=== PATIENT | male | born 2000 | race Caucasian/White ===

== ENCOUNTER 2021-05-26 04:14 | Emergency (ER) | payer MEDICAID, SELFPAY ==
[2021-05-26 04:21] VITALS: BP 126/90; BP 127/85; PULSE 63; PULSE 95; RESP 18; TEMP 36.1; O2SAT 95; O2SAT 97; BMI 21.1
--- NOTE | 2021-05-26 04:56 | ED_ITS ---
HPI - Headache General Chief Complaint: Headache Stated Complaint: migraine Time Seen by Provider: 05/26/21 04:29 Source: patient Mode of arrival: EMS History of Present Illness HPI Narrative: 21-year-old male with history of migraines reports that he has had onset and progression of his normal pattern of migraines without associated fever, chills, neck stiffness, sore throat, or cough. Patient denies any COVID- 19 vaccinations and denies any nausea, but states he has photosensitivity without sensitivity to audio. Related Data Previous Rx's Medication Instructions Recorded ketorolac 10 mg tablet 10 mg PO Q6H PRN 5 Days #20 tab 05/26/21 Allergies Allergy/AdvReac Type Severity Reaction Status Date / Time No Known Allergies Allergy Unverified 05/26/21 04:52 Review of Systems Review of Systems: Pertinent positives and negatives as stated in HPI 10 point review of systems is otherwise negative. PMFSH Past Medical History Source: nursing notes reviewed Social History Social History Advance Directives: No Advance Directives Information Provided: No Physical Exam Vital Signs: Vital Signs: Last Vital Signs Temp 98.6 F 05/26/21 05:35 Pulse 70 05/26/21 05:35 Resp 16 05/26/21 05:35 BP 118/70 05/26/21 05:35 Pulse Ox 99 05/26/21 05:35 Body Mass Index 21.1 VITAL SIGNS: Reviewed. GENERAL: Well developed, well nourished, in no acute distress. HEAD: Normocephalic/atraumatic EYES: PERRLA, EOMI EARS: Ext canals without abnormality, TMs non-bulging and non-erythematous NOSE: Nares patent bilateral OROPHARYNX: no oral lesions noted, posterior pharynx clear and non-erythematous without noted tonsillar enlargement/erythema/exudates NECK: Supple, no adenopathy LUNGS: Normal breath sounds. No adventitious sounds or accessory muscle use. SpO2<95> CARDIOVASCULAR: Regular rate and rhythm without noted murmurs ABDOMEN: Soft, non-tender, non-distended with bowel sounds. NEUROLOGIC: Alert and oriented x 4. Strength and sensation to light touch were grossly intact x 4. Course Course Course Narrative: 21-year-old male with history and clinical presentation consistent with acute on chronic migraine exacerbation and will receive IV fluids in combination migraine cocktail with the exception Tylenol as he states he is allergic to acetaminophen. On re-evaluation patient is feeling much better and will be discharged home in stable condition. In addition, he will be provided with a neurology consult regarding his migraines. Discharge Plan Discharge Clinical Impression: Migraine Patient Disposition: Home, Self-Care Instructions: Migraine Headache (ED) Additional Instructions: 1. Increase fluid hydration especially with water. 2. You have been provided with a neurology referral please call the number below today for evaluation. Return to the ER for acute worsening of symptoms. Prescriptions: New ketorolac 10 mg tablet 10 mg PO Q6H PRN (Reason: pain) 5 Days Qty: 20 RF: 0 Referrals: Physician,Unknown J [Primary Care Provider] - 2 days
[2021-05-26 05:35] VITALS: BP 118/70; PULSE 70; RESP 16; TEMP 37; O2SAT 99
[2021-05-26] MEDS: diphenhydrAMINE HCL 50 MG/ML VIAL 25 MG IVPUSH (05:39)
[2021-05-26] MEDS: Ketorolac Tromethamine 15 MG/ML VIAL IVPUSH (05:41)
[2021-05-26] MEDS: Metoclopramide HCl 10 MG/2 ML VIAL IVPUSH (05:42)
[2021-05-26] MEDS: 0.9 % Sodium Chloride 1,000 ML 999 ML IV (05:42)
--- NOTE | 2021-05-26 06:05 | PC.NURSE ---
PT MEDICATED FOR HEAD PAIN PER EMAR.
== END 2021-05-26 07:22 | disposition home or self-care (01) ==
PROVIDERS: Emergency Provider Student in an Organized Health Care Education/Training Program
DX: G43.909 Migraine, unspecified, not intractable, without status migrainosus (principal); Z79.899 Other long term (current) drug therapy
CPT/HCPCS: 96361; 96374; 96375; 99284; J1200; J1885; J2765